=== PATIENT | female | born 1980 | race Caucasian/White ===

== ENCOUNTER 2022-11-05 09:52 | Outpatient (CLI) | payer BC, SELFPAY ==
--- NOTE | 2022-11-05 09:58 | CRLHL7_ITS ---
For Patients: As a result of the Century Cures Act, medical imaging exams and procedure reports are released immediately into your electronic medical record. You may view this report before your referring provider. If you have questions, please contact your health care provider. BILATERAL SCREENING MAMMOGRAM WITH COMPUTER-AIDED DETECTION TECHNIQUE: CC and MLO views were obtained. These mammographic images have been obtained using full-field digital technique. These mammographic images were interpreted with the benefit of computer-aided detection. COMPARISON FILM: Baseline. FINDINGS: There are scattered areas of fibroglandular density IMPRESSION: There is no radiographic evidence for malignancy. ASSESSMENT: BI-RADS Category 1: Negative RECOMMENDATION: Routine screening mammogram in 1 year. A lay language report of this examination will be provided to the patient. Manuel Proctor M.D. Diagnostic Radiologist [email or web address] Transcribed: 4:51 [email or web address] by: Manuel Proctor MD @ 11/05/2022 11:29:00 AM (Electronically Signed)
== END 2022-11-05 09:53 | disposition home or self-care (01) ==
LOC: MAMMO 09:54
PROVIDERS: PCP Student in an Organized Health Care Education/Training Program; Visit Provider Registered Nurse
DX: Z12.31 Encounter for screening mammogram for malignant neoplasm of breast (principal)
CPT/HCPCS: 77067